=== PATIENT | female | born 1955 | race Caucasian/White ===

== ENCOUNTER 2024-01-06 08:10 | Emergency (ER) | payer OTHER, SELFPAY ==
--- NOTE | ~2024-01-06 | CT_ITS ---
Non-contrast Head CT History: Trauma Technique: Axial non-contrast imaging of the brain was performed. Dose reduction technique was used on this scan by utilizing automated exposure control and iterative reconstruction technique. The dose -length product (DLP) was 681.00 mGy-cm. Findings: There is no evidence of intracranial hemorrhage, mass lesion, or acute infarct. Brain par enchyma appears normal. The ventricles and subarachnoid spaces are normal in size. The calvarium ap pears normal. The visualized paranasal sinuses and mastoid air cells are clear. Impression: No significant abnormality seen. Reviewed, dictated and finalized at location . Impression: No significant abnormality seen.
--- NOTE | ~2024-01-06 | XR_ITS ---
EXAMINATION: XR ribs BI 3V w CXR 2V DATE: 01/06/2024 09:12 INDICATION: Fall onto concrete. TECHNIQUE: Frontal and lateral views of the chest and 2 views on 3 radiographs of the right ribs and 2 views on 3 radiographs of the left ribs were obtained. COMPARISON: Chest 2 views 12/18/2011 FINDINGS: CHEST TWO VIEWS: There is no pneumonia, pleural effusion, or pneumothorax. The heart size is normal. BILATERAL RIBS: There is no rib fracture. IMPRESSION: 1. No rib fracture. Reviewed, dictated and finalized at location A. IMPRESSION: 1. No rib fracture.
--- NOTE | ~2024-01-06 | XR_ITS ---
EXAMINATION: XR hand RT min 3V, XR hand LT min 3V DATE: 01/06/2024 09:13 INDICATION: Palmar abrasions at the bilateral hands post fall TECHNIQUE: 1. Posteroanterior, oblique and lateral views of the left hand were obtained. 2. Posteroanterior, oblique and lateral views of the right hand were obtained. COMPARISON: None. FINDINGS: Bone alignment is normal at the bilateral hands and wrists. No fracture. Polyarticular osteoarthritis , mild to moderate severity at the interphalangeal joints with distal predominance particularly at th e right first interphalangeal and right second distal interphalangeal joints and mild at the bilatera l triscaphe, first carpometacarpal and multiple metacarpophalangeal joints. Soft tissues are unremark able with no radiopaque foreign bodies. IMPRESSION: 1. Mild to moderate distal interphalangeal predominant polyarticular osteoarthritis at the bilateral hands. No acute osseous abnormality or radiopaque foreign bodies. Reviewed, dictated and finalized at location B. IMPRESSION: 1. Mild to moderate distal interphalangeal predominant polyarticular osteoarthr itis at the bilateral hands. No acute osseous abnormality or radiopaque foreign bodies.
[2024-01-06 08:13] VITALS: BP 141/76; PULSE 72; RESP 16; O2SAT 99
[2024-01-06] MEDS: ONDANSETRON INJ 4 MG/2 ML VIAL IV PUSH (08:41)
[2024-01-06] MEDS: MORPHINE SULFATE (*CRX) 4 MG/ML INJ IV PUSH (08:41)
[2024-01-06 09:38] VITALS: BP 127/61; PULSE 68; RESP 16; O2SAT 100
[2024-01-06] MEDS: KETOROLAC 30 MG/ML VIAL (*BKC) IV PUSH (10:17)
[2024-01-06] MEDS: MORPHINE SULFATE (*CRX) 2 MG/ML INJ IV PUSH (10:17)
[2024-01-06 10:22] VITALS: BP 122/64; PULSE 74; RESP 18; O2SAT 99
--- NOTE | 2024-01-06 11:19 | ED.FALL ---
HPI - Fall General Chief Complaint: Fall Stated Complaint: fall Time Seen by Provider: 01/06/24 08:18 History of Present Illness HPI Narrative: Patient is a 68-year-old female who presents ER after a fall. She was out walking her dog when she tripped and she fell striking her chest on the edge of a curb. She struck her head but did not lose consciousness. She has pain in her hands bilaterally as well as over the center of her chest. She just moved here from [place]. Related Data Allergies Allergy/AdvReac Type Severity Reaction Status Date / Time No Known Allergies Allergy Mild Verified 01/06/24 08:22 Review of Systems Review of Systems: All systems reviewed & are unremarkable except as noted in HPI and below Constitutional: Constitutional: Reports no additional constitutional complaints Cardiovascular: Cardiovascular: Reports chest pain (Chest wall), Denies rapid heart rate and Denies radiating jaw, neck or arm pain Respiratory: Respiratory: Reports no additional respiratory complaints Gastrointestinal: Gastrointestinal: Reports no additional gastrointestinal complaints Musculoskeletal: Musculoskeletal: Reports myalgias, Reports arthralgias and Denies joint swelling Integumentary/Breasts: Skin/Breast: Reports system reviewed and no additional complaints, except as docu PMFSH Past Medical History Medical History (Updated 01/06/24 @ 11:39 by Denny Ward MD) GERD (gastroesophageal reflux disease) Family History Family History (Updated 11/16/15 @ 23:19 by DOCTOR UNKNOWN) Mother Cerebrovascular accident Family history of diabetes mellitus in first degree relative Sibling Family history of diabetes mellitus in first degree relative Father Family history of emphysema, Onset Age: 68 Social History Social History Smoking status: Never smoker Alcohol intake: never Exam Narrative: GENERAL: Uncomfortable-appearing, well-nourished, and in no acute distress. HEAD: Normocephalic, abrasion/contusion to the forehead centrally. ENT: Mucous membranes moist. NECK: Supple. No midline tenderness of the cervical spine. CHEST: Clear to auscultation. No respiratory distress. Linear abrasion/bruise across the breast bilaterally and midsternum with tenderness to palpation. HEART: Regular rate and rhythm. Normal peripheral pulses. ABDOMEN: Soft, nontender, nondistended. EXTREMITIES: Right hand with tenderness over the 2nd metacarpal with bruising. Abrasions over her palms bilaterally. Left 4th finger has bruising over the middle phalanx with limited range of motion due to pain. No lower extremity injuries. No issues at the elbows or shoulders bilaterally. SKIN: Warm, dry, no rash. NEURO: Alert and oriented x3. Course Course Emergency Course: No acute bony fracture. Patient does have discomfort in her left ring finger so I have placed her in a [place] splint. Will give name of PCP locally she can follow-up with. Anti-inflammatories muscle relaxers for discomfort home. Recommend rest and ice as well. Vital Signs Vital signs: Vital Signs Pulse Rate 72 01/06/24 08:13 Respiratory Rate 16 01/06/24 08:13 Blood Pressure 141/76 H 01/06/24 08:13 Pulse Oximetry 99 01/06/24 08:13 Oxygen Delivery Room Air 01/06/24 08:13 Pulse Rate 74 01/06/24 10:22 Respiratory Rate 18 01/06/24 10:22 Blood Pressure 122/64 01/06/24 10:22 Pulse Oximetry 99 01/06/24 10:22 Oxygen Delivery Room Air 01/06/24 08:13 MDM - Fall Imaging Data Radiologist's impression: ITS Impressions Head CT 01/06/24 08:57 Impression: No significant abnormality seen. Ribs w/Chest X-Ray 01/06/24 09:17 IMPRESSION: 1. No rib fracture. Hand X-Ray 01/06/24 09:18 IMPRESSION: 1. Mild to moderate distal interphalangeal predominant polyarticular osteoarthritis at the bilateral hands. No acute osseous abnormality or radiopaque foreign bodies. Hand X-Ray 01/06/24 0
== END 2024-01-06 11:37 | disposition home or self-care (01) ==
PROVIDERS: Emergency Provider Emergency Medicine
DX: S20.213A Contusion of bilateral front wall of thorax, initial encounter (principal); S60.221A Contusion of right hand, initial encounter; S63.615A Unspecified sprain of left ring finger, initial encounter; K21.9 Gastro-esophageal reflux disease without esophagitis; M19.042 Primary osteoarthritis, left hand; M19.041 Primary osteoarthritis, right hand; W01.0XXA Fall on same level from slipping, tripping and stumbling without subsequent striking against object, initial encounter
CPT/HCPCS: 70450; 71046; 71110; 73130; 96374; 96375; 96376; 99284; J1885; J2270; J2405

== ENCOUNTER 2024-01-08 08:43 | Emergency (ER) | payer OTHER, SELFPAY ==
--- NOTE | ~2024-01-08 | XR_ITS ---
EXAMINATION: XR hand RT min 3V DATE: 01/08/2024 11:39 INDICATION: Right hand swelling. Fall. TECHNIQUE: 3 views of right hand were obtained. COMPARISON: None. FINDINGS: Bone alignment is normal. No fracture. There is mild osteoarthritis of first carpometacarpa l joint and many of the metacarpophalangeal joints and interphalangeal joints. There is moderate oste oarthritis of second metacarpophalangeal joint and fourth distal interphalangeal joint. There is issac re osteoarthritis of first interphalangeal joint and second distal interphalangeal joint. IMPRESSION: 1. Polyarticular osteoarthritis. Reviewed, dictated and finalized at location A.
--- NOTE | ~2024-01-08 | XR_ITS ---
EXAMINATION: XR wrist RT min 3V DATE: 01/08/2024 11:39 INDICATION: Right wrist swelling. Fall. TECHNIQUE: 4 views of right wrist were obtained. COMPARISON: None. FINDINGS: Bone alignment is normal. No fracture. There is mild osteoarthritis of first metacarpal adrianna nt. IMPRESSION: 1. Mild osteoarthritis of first carpometacarpal joint. Reviewed, dictated and finalized at location A.
[2024-01-08 09:31] VITALS: BP 127/72; PULSE 84; RESP 14; TEMP 36.4; O2SAT 100
[2024-01-08 11:21] VITALS: BP 123/75; PULSE 86; RESP 18; O2SAT 97
[2024-01-08] MEDS: oxyCODONE HCL (*CRX) 5 MG TAB IR PO (12:30)
[2024-01-08] MEDS: predniSONE 20 MG TABLET PO (12:30)
--- NOTE | 2024-01-08 13:15 | ED.UPPEXIN ---
HPI - Extremity Injury (Upper) General Chief Complaint: Extremity Injury, Upper Stated Complaint: hand swelling Time Seen by Provider: 01/08/24 10:59 History of Present Illness HPI narrative: 68-year-old female presented to the ER for repeat evaluation. She was seen here several days prior after mechanical fall while she was walking her dog. She landed struck her chest and hand on the sidewalk. She states she has been having significant pain and swelling in her right hand on the dorsum since her discharge. Supposedly she had negative x-ray images at that time and was discharged with just anti-inflammatory medications. She is knows that there has been significantly more swelling in the right upper extremity specifically dorsum of the right hand she is having some difficulty gripping with that. No neuropathy or weakness but states that is difficult given the level swelling. No other issues and denies any chest pain, shortness a breath, headache, vision changes, abdominal pain, nausea, vomiting. Was previously normal state of health. Has been taking her Tylenol and ibuprofen without any significant relief of her pain or swelling. Related Data Allergies Allergy/AdvReac Type Severity Reaction Status Date / Time No Known Allergies Allergy Mild Verified 01/08/24 09:34 Review of Systems Review of Systems: As reviewed above in HPI [facility] Past Medical History Medical History GERD (gastroesophageal reflux disease) Family History Family History Mother Cerebrovascular accident Family history of diabetes mellitus in first degree relative Sibling Family history of diabetes mellitus in first degree relative Father Family history of emphysema, Onset Age: 68 Social History Social History Smoking status: Never smoker Alcohol intake: never Exam Narrative: GENERAL: [Well-appearing, well-nourished, and in no acute distress.] HEAD: [Normocephalic, atraumatic.] EYES: [PERRLA and EOMI.] ENT: Nares clear, no rhinorrhea or epistaxis. Mucous membranes moist. NECK: Supple. CHEST: [Clear to auscultation. No respiratory distress.] HEART: [Regular rate and rhythm]. No murmur heard. [Normal peripheral pulses.] ABDOMEN: [Soft, nondistended], [nontender], [No rigidity or guarding] EXTREMITIES: The dorsum of the right hand is markedly swollen with some overlying bruising, no skin breakdown. Palmar surface without any bruising but does have some abrasions over the MCP joint on the 1st and 2nd digit consistent with her previous fall and abrasion on the skin. No overt fractures or deformities. Able to flex extend at the MCP, PIP and D IP joint of each finger. Strength 5/5. Able to extend his finger. No tenderness over the snuffbox. Able to radially and ulnarly deviate the wrist. SKIN: Warm, dry, no rash. NEURO: [No focal deficits]. Alert and oriented [x3.] PSYCH: [Normal mood and affect.] Course Vital Signs Vital signs: Vital Signs Temperature 36.4 C L 01/08/24 09:31 Pulse Rate 84 01/08/24 09:31 Respiratory Rate 14 01/08/24 09:31 Blood Pressure 127/72 01/08/24 09:31 Pulse Oximetry 100 01/08/24 09:31 Oxygen Delivery Room Air 01/08/24 09:31 Temperature 36.4 C L 01/08/24 09:31 Pulse Rate 86 01/08/24 11:21 Respiratory Rate 18 01/08/24 11:21 Blood Pressure 123/75 01/08/24 11:21 Pulse Oximetry 97 01/08/24 11:21 Oxygen Delivery Room Air 01/08/24 09:31 MDM - Extremity Injury (Upper) MDM Narrative Medical decision making narrative: 68-year-old female presenting for re-evaluation of her right hand after an injury 2 days prior. She had a mechanical ground level fall and fell onto her right hand and chest. She is complaining of worsening swelling and pain her right hand. Swelling appears to be locali
== END 2024-01-08 13:33 | disposition home or self-care (01) ==
PROVIDERS: Emergency Provider Student in an Organized Health Care Education/Training Program
DX: S60.221A Contusion of right hand, initial encounter (principal); M18.9 Osteoarthritis of first carpometacarpal joint, unspecified; M19.041 Primary osteoarthritis, right hand; K21.9 Gastro-esophageal reflux disease without esophagitis; W18.39XA Other fall on same level, initial encounter; Y93.K1 Activity, walking an animal
CPT/HCPCS: 73110; 73130; 99283; A9270; J7512

== ENCOUNTER 2024-01-19 14:26 | Emergency (ER) | payer OTHER, SELFPAY ==
--- NOTE | ~2024-01-19 | XR_ITS ---
EXAMINATION: XR chest 2V Exam Date/Time: 01/19/2024 14:55 CDT HISTORY: cp ANTERIOR SUPERIOR CHEST X 2 WEEKS Comparison: 12/18/2011 and 01/06/2024. RESULT: Lines, tubes, and devices: None. Lungs and pleura: Clear. Cardiomediastinal silhouette: Stable. Other: No acute osseous or upper abdominal finding. IMPRESSION: No acute cardiopulmonary process. Reviewed, dictated and finalized at location K.
--- NOTE | 2024-01-19 14:27 | ECG_ITS ---
Test Date: 2024-01-19 14:36:44 Measurements Intervals [place] Rate: 86 P: 66 CA: 136 QRS: 14 QRSD: 90 T: 56 QT: 381 QTc: 457 Interpretive Statements SINUS RHYTHM No previous ECG available for comparison Electronically Signed On 01-19-2024 14:55:30 CDT by Cecil Swanson M.D.
--- NOTE | 2024-01-19 14:43 | ED.CHESTPAIN ---
HPI - Chest Pain General Chief Complaint: Chest Pain Stated Complaint: cp Time Seen by Provider: 01/19/24 14:43 Focused HPI: This is a 68-year-old female that presents to the emergency department for ongoing chest pain. Reports she was seen at this facility after a fall recently. Reports landing on her chest. She was evaluated at that time. Did not have any fractures. She has continued to have worsening chest pain since. Reports the pain is waking her up at night. Denies fever, cough, shortness of breath. GENERAL: Well-appearing, well-nourished, and in no acute distress. HEAD: Normocephalic, atraumatic. CHEST: Clear to auscultation. ?No respiratory distress. HEART: Regular rate and rhythm.? NEURO: ?Alert and oriented x3. Patient screened in triage and initial orders placed.? ?Additional care and disposition to be based upon?diagnostic testing and treatment. Source: patient Mode of arrival: ambulatory Limitations: no limitations Related Data Allergies Allergy/AdvReac Type Severity Reaction Status Date / Time No Known Allergies Allergy Mild Verified 01/08/24 09:34 [facility] Past Medical History Medical History GERD (gastroesophageal reflux disease) Family History Family History Mother Cerebrovascular accident Family history of diabetes mellitus in first degree relative Sibling Family history of diabetes mellitus in first degree relative Father Family history of emphysema, Onset Age: 68 Social History Social History Smoking status: Never smoker Alcohol intake: never Course Vital Signs Vital signs: Vital Signs Temperature 97.7 F 01/19/24 14:56 Pulse Rate 88 01/19/24 14:56 Respiratory Rate 16 01/19/24 14:56 Blood Pressure 150/73 H 01/19/24 14:56 Pulse Oximetry 99 01/19/24 14:56 Temperature 97.7 F 01/19/24 14:56 Pulse Rate 88 01/19/24 14:56 Respiratory Rate 16 01/19/24 14:56 Blood Pressure 150/73 H 01/19/24 14:56 Pulse Oximetry 99 10/01/24 14:56 MDM - Chest Pain MDM Narrative Medical decision making narrative: Patient left after medical screening exam and initial workup and before any further evaluation or management Lab Data 01/19/24 14:42 01/19/24 14:42 Labs: Lab Results 01/19/24 Range/Units 14:42 WBC 8.7 (4.5-10.0) K/mm3 RBC 3.65 L (4.2-5.4) M/mm3 Hgb 11.9 L (12.0-15.0) g/dL Hct 36.0 L (37.0-47.0) % MCV 98.6 (80-100) fl MCH 32.6 (26-34) pg MCHC 33.1 (32-36) g/dl RDW 14.7 H (11.5-14.5) % Plt Count 237 (150-375) k/mm3 MPV 10.9 H (7.4-10.4) fl Immature Gran % (Auto) 0.2 (0-0.5) % Neut % (Auto) 67.3 (45.5-73.1) % Lymph % (Auto) 20.9 (18.3-44.2) % [place] % (Auto) 11.0 H (2.6-8.5) % Eos % (Auto) 0.0 (0-4.4) % Baso % (Auto) 0.6 (0.2-1.2) % Lymph # (Auto) 1.83 (0.9-3.2) K/mm3 [place] # (Auto) 1.0 H (0.1-0.6) K/mm3 Eos # (Auto) 0.0 (0-0.3) K/mm3 Baso # (Auto) 0.1 (0.0-0.1) K/mm3 Abs Immat Gran (auto) 0.02 (0.00-0.031) K/mm3 Absolute Neuts (auto) 5.9 (1.3-6.7) K/mm3 Absolute Nucleated RBC 0.000 (0.0-0.012) K/mm3 Nucleated RBC % 0.0 (0.0-0.2) % PT 12.7 (11.1-14.7) Seconds INR 0.9 APTT 26.7 (22.3-36.8) Seconds Sodium 141 (137-145) mmol/L Potassium 3.2 L (3.4-5.0) mmol/L Chloride 102 (98-107) mmol/L Carbon Dioxide 32 H (22-30) mmol/L Anion Gap 7 (4-12) mmol/L BUN 16 (7-17) mg/dL Creatinine 0.50 L (0.7-1.0) mg/dL Estim Creat Clear Calc Not Reportable Estimated GFR > 60 (59 - ) Glucose 97 (65-110) mg/dL Calcium 9.5 (8.4-10.2) mg/dL Total Bilirubin 0.4 (0.2-1.3) mg/dL AST 35 (14-36) U/L ALT 22 (6-35) U/L Alkaline Phosphatase 180 H (38-126) U/L Troponin I < 0.012 (0.000-0.034) ng/mL Total Protein 7.0 (6.3-8.2) g/dL Alb
[2024-01-19 14:50] LABS: Basophils Absolute Auto 0.1 K/mm3 (0.0-0.1); Basophils Percent Auto 0.6 % (0.2-1.2); Hemoglobin 11.9 g/dL (12.0-15.0); Immature Granulocyte Absolute 0.02 K/mm3 (0.00-0.031); Immature Granulocyte Percent A 0.2 % (0-0.5); Lymphocytes Absolute Auto 1.83 K/mm3 (0.9-3.2); Lymphocytes Percent Auto 20.9 % (18.3-44.2); Mean Corpuscular HGB Conc 33.1 g/dl (32-36); Mean Corpuscular Hemoglobin 32.6 pg (26-34); Mean Corpuscular Volume 98.6 fl (80-100); Mean Platelet Volume 10.9 fl (7.4-10.4); Neutrophils Absolute Auto 5.9 K/mm3 (1.3-6.7); Neutrophils Percent Auto 67.3 % (45.5-73.1); Platelet Count Result 237 k/mm3 (150-375); Red Blood Count 3.65 M/mm3 (4.2-5.4); Red Cell Distribution Width 14.7 % (11.5-14.5); White Blood Count 8.7 K/mm3 (4.5-10.0)
[2024-01-19 14:56] VITALS: BP 150/73; PULSE 88; RESP 16; TEMP 36.5; O2SAT 99
[2024-01-19 15:00] LABS: Alanine Aminotransferase 22 U/L (6-35); Alkaline Phosphatase 180 U/L (38-126); Anion Gap 7 mmol/L (4-12); Aspartate Amino Transferase 35 U/L (14-36); Bilirubin,Total 0.4 mg/dL (0.2-1.3); Blood Urea Nitrogen 16 mg/dL (7-17); Calcium 9.5 mg/dL (8.4-10.2); Carbon Dioxide 32 mmol/L (22-30); Chloride 102 mmol/L (98-107); Estimated Glomerular Filt Rate > 60; Glucose 97 mg/dL (65-110); Lipase 53 U/L (23-300); Potassium 3.2 mmol/L (3.4-5.0); Sodium 141 mmol/L (137-145)
[2024-01-19 15:01] LABS: INR 0.9; Prothrombin Time 12.7 Seconds (11.1-14.7)
[2024-01-19 15:02] LABS: Partial Thromboplastin Time 26.7 Seconds (22.3-36.8)
[2024-01-19 15:12] LABS: Troponin I < 0.012 ng/mL (0.000-0.034)
--- NOTE | 2024-01-19 19:41 | PC.NURSE ---
Told by security that pt was leaving and seen walking out.
== END 2024-01-19 19:41 | disposition left against medical advice (07) ==
PROVIDERS: Emergency Medicine; Emergency Provider Physician Assistant
DX: R07.9 Chest pain, unspecified (principal); W19.XXXA Unspecified fall, initial encounter
CPT/HCPCS: 36415; 71046; 80053; 83690; 84484; 85025; 85610; 85730; 93005; 99284

== ENCOUNTER 2024-01-25 08:46 | Outpatient (CLI) | payer OTHER, SELFPAY ==
--- NOTE | ~2024-01-25 | US_ITS ---
Limited Abdominal Sonogram: Real-time sonographic imaging of the right upper quadrant was performed. Clinical History: Elevated liver enzymes Findings: The liver appears normal with no evidence of mass lesion or bile duct dilatation. Main por gallito vein demonstrates normal direction of flow. The gallbladder is well distended, and appears normal with no evidence of gallstone or wall thickening. The common bile duct measures 3 mm. The visualize d pancreas, aorta, and IVC are unremarkable. Impression: No significant abnormality seen. Reviewed, dictated and finalized at location M. Impression: No significant abnormality seen.
== END 2024-01-25 08:47 | disposition home or self-care (01) ==
LOC: GOSHIMG 08:47
PROVIDERS: PCP Emergency Medicine; Visit Provider Emergency Medicine
DX: R74.8 Abnormal levels of other serum enzymes (principal)
CPT/HCPCS: 76705